=== PATIENT | female | born 1985 | race Caucasian/White ===

== ENCOUNTER 2017-02-13 18:59 | Emergency (ER) | payer BC, OTHER ==
[~2017-02-13] VITALS: Ht 172.7 cm; Wt 81.1 kg
[2017-02-13] MEDS ORDERED: ONDANSETRON 2MG/ML, 2ML IVPush ONE (19:30)
[2017-02-13] MEDS ORDERED: SODIUM CHLORIDE 0.9% 1,000ML IVBOLUS ONE (19:30)
[2017-02-13] MEDS ORDERED: SODIUM CHLORIDE FLUSH 10ML SYR IVF ONE (19:30)
[2017-02-13] MEDS ORDERED: ONDANSETRON 2MG/ML, 2ML ONE (19:37)
[2017-02-13] MEDS ORDERED: MORPHINE SULFATE 4 MG/ML, 1ML ONE ×2 (19:37→20:48)
[2017-02-13] MEDS: MORPHINE SULFATE 4 MG/ML, 1ML IVPush PRN ×2 (19:47→20:53)
[2017-02-13 20:02] LABS: BLOOD UREA NITROGEN 13 mg/dL (7-18)
[2017-02-13] MEDS ORDERED: HYDROmorphone 1 MG/ML, 1ML ONE (22:42)
[2017-02-13] MEDS ORDERED: HYDROmorphone 2 MG/ML, 1ML IVPush PRN (23:00)
[2017-02-13] MEDS ORDERED: HYDROmorphone 1 MG/ML, 1ML IVPush PRN (23:02)
[2017-02-13 23:36] VITALS: BP 118/85
== END 2017-02-13 23:38 | disposition home or self-care (01) ==
LOC: ED 23:32
DX: R10.2 Pelvic and perineal pain (principal)
CPT/HCPCS: 36415; 76830; 80048; 81003; 82040; 84703; 85025; 96361; 96374; 96375; 96376; 99285; J1170; J2405; J7030

== ENCOUNTER 2017-03-22 05:53 | Day surgery (SDC) | payer BC, OTHER ==
[~2017-03-22] VITALS: Ht 172.7 cm; Wt 78.5 kg
[~2017-03-22 05:53] MED LIST: HYDR-883 PO; IBUP-1222 PO
[2017-03-22] MEDS ORDERED: BUPIVACAINE/PF-EPI 0.5% 1:200K ONE (06:23)
[2017-03-22] MEDS ORDERED: LACTATED RINGERS 1,000 ML IV SCH (07:22)
[2017-03-22 07:25] VITALS: BP 120/72
[2017-03-22 07:31] LABS: HCG UR OBC PASS
[2017-03-22] MEDS ORDERED: FENTANYL PF 250 MCG/5ML ONE (07:50)
[2017-03-22] MEDS ORDERED: MIDAZOLAM 1 MG/ML, 2ML ONE ×2 (07:51→11:06)
[2017-03-22] MEDS ORDERED: NEOSTIGMINE 1 MG/ML, 10ML ONE (08:16)
[2017-03-22] MEDS ORDERED: GLYCOPYRROLATE 0.2MG/1ML ONE (08:16)
[2017-03-22] MEDS ORDERED: ONDANSETRON 2MG/ML, 2ML ONE ×2 (08:16→11:06)
[2017-03-22] MEDS ORDERED: KETOROLAC 30 MG/1 ML ONE (08:16)
[2017-03-22] MEDS ORDERED: ROCURONIUM 10 MG/ML ONE (08:16)
[2017-03-22] MEDS ORDERED: CEFAZOLIN 1,000 MG ONE (08:16)
[2017-03-22] MEDS ORDERED: PROPOFOL 10 MG/ML, 20ML ONE (08:16)
[2017-03-22] MEDS ORDERED: DEXAMETHASONE 4 MG/ML, 1ML ONE (08:16)
[2017-03-22] MEDS ORDERED: SUCCINYLCHOLINE 20 MG/ML, 10ML ONE (08:16)
[2017-03-22] MEDS ORDERED: BUPIVACAINE/PF-EPI 0.25% 1:200K INFIL ONE (08:57)
[2017-03-22] MEDS ORDERED: ONDANSETRON 2MG/ML, 2ML IVPush PRN (09:00)
[2017-03-22] MEDS ORDERED: FENTANYL PF 100 MCG/2ML IV PRN (09:00)
[2017-03-22] MEDS ORDERED: PROMETHAZINE 25 MG/ML, 1ML IV PRN (09:00)
[2017-03-22] MEDS ORDERED: OXYcodone 5 MG/5 ML ORAL.SOL UDC PO PRN (09:00)
[2017-03-22] MEDS ORDERED: EPHEDRINE 50 MG/ML, 1ML IVPush PRN (09:00)
[2017-03-22] MEDS ORDERED: LABETALOL 5MG/ML, 20ML IV PRN (09:00)
[2017-03-22] MEDS ORDERED: ALBUTEROL SULFATE 2.5 MG/3 ML NPPB PRN (09:00)
[2017-03-22] MEDS ORDERED: hydrALAzine 20 MG/ML, 1ML IV PRN (09:00)
[2017-03-22] MEDS ORDERED: HYDROmorphone 1 MG/ML, 1ML IV PRN (09:00)
[2017-03-22] MEDS ORDERED: HYDROcodone/APAP 7.5-325MG/15ML UDC PO PRN (09:00)
[2017-03-22] MEDS ORDERED: MEPERIDINE/PF 25MG/0.5ML IVPush PRN (09:00)
[2017-03-22] MEDS ORDERED: MIDAZOLAM 1 MG/ML, 2ML IV PRN (09:00)
[2017-03-22] MEDS ORDERED: ACETAMINOPHEN 325 MG TABLET PO PRN (09:00)
[2017-03-22] MEDS ORDERED: METOPROLOL 1 MG/ML, 5ML IV PRN (09:00)
[2017-03-22] MEDS ORDERED: HYDROmorphone 2 MG/ML, 1ML ONE (09:27)
[2017-03-22] MEDS ORDERED: FLUORESCEIN SODIUM 500 MG/5 ML ONE (09:46)
[2017-03-22] MEDS ORDERED: FENTANYL PF 100 MCG/2ML ONE (11:06)
[2017-03-22] MEDS ORDERED: HYDROmorphone 1 MG/ML, 1ML ONE (11:07)
[2017-03-22] MEDS ORDERED: ACETAMINOPHEN 325 MG/10.15 ML UDC ONE (12:14)
[2017-03-22] MEDS ORDERED: OXYcodone 5 MG/5 ML ORAL.SOL UDC ONE (12:14)
== END 2017-03-22 13:25 ==
LOC: OUT 05:53
PROVIDERS: ATTEND Student in an Organized Health Care Education/Training Program
DX: N80.9 Endometriosis, unspecified (principal); N80.8 Other endometriosis; N94.89 Other specified conditions associated with female genital organs and menstrual cycle; Z83.3 Family history of diabetes mellitus
CPT/HCPCS: 36415; 58571; 81025; 86850; 86900; 88307; J0330; J0690; J1100; J1170; J1885; J2250; J2405; J2704; J2710; J3010; J7120; J3490